=== PATIENT | male | born 1950 | race Caucasian/White ===

== ENCOUNTER 2016-08-17 18:08 | Inpatient (IN) | payer BC, OTHER ==
[2016-08-17] VITALS (7 sets, daily range): BP systolic 121–193; BP diastolic 74–120; PULSE 59–142; RESP 14–20; TEMP 97.9; O2SAT 94–98
[~2016-08-17 18:08] MED LIST: ALPH400C2; APIX5TAB PO; CARDIO PLUS; CART120C PO; ISOS60TA PO; NITR0.4O SL; POTA99TA PO; VITA100064 PO; [UNRECOGNIZED DRUG - CODE]; bone-up
[2016-08-17] MEDS ORDERED: SODIUM CHLORIDE 0.9% FLUSH 10 ML FLUSH IVF PRN ×2 (18:30→18:45)
[2016-08-17] MEDS ORDERED: DILTIAZEM INJ 125 MG in SODIUM CHLORIDE 0.9% INJ 100 ML IV SCH (18:45)
[2016-08-17] MEDS ORDERED: DILTIAZEM HCL 25 MG/5 ML VIAL IV PUSH ONE (18:45)
--- NOTE | 2016-08-17 19:05 | PD ---
HPI Chief Complaint: Chest Pain Time Seen by Provider: 18:35 Travel History International Travel<30 days: No Contact w/Intl Traveler<30days: No Traveled to known affect area: No History of Present Illness HPI 66-year-old male patient with history of atrial fibrillation currently on Cardizem by mouth, CAD with LAD stent, presents to the ER today because of sudden onset of chest discomfort which she currently rates at a 1-2 out of 10, palpitations starting after he started eating mushrooms today. He states that his also ate the mushroom and did not have problems. He denies any shortness of breath, nausea, or any other symptoms. The chest pain did not radiate anywhere. He does not know any alleviating or S being symptoms. He states that the chest discomfort as coming and going on its own intermittently. Modifying Factors: None Associated Signs & Symptoms: Intermittent chest pains and palpitations Risk Factors: A. fib and CAD history PFSH Past Medical History Hx Anticoagulant Therapy: Yes Asthma: No Blood Disorders: No Anxiety: No Depression: No Heart Rhythm Problems: Yes (SKIPS BEAT) Cancer: No Cardiac Catheterization: Yes (STENT PLACED) Cardiovascular Problems: Yes (STENT) High Cholesterol: Yes Chemotherapy: No Chest Pain: Yes Congestive Heart Failure: No COPD: No Diabetes: No Diminished Hearing: No Endocrine: No Genitourinary: No Immune Disorder: No Implanted Vascular Access Dvce: Yes Kidney Stones: Yes Musculoskeletal: No Neurologic: No Psychiatric: No Reproductive: No Respiratory: Yes Radiation Therapy: No Sleep Apnea: Yes Thyroid Disease: No Past Surgical History Body Medical Devices: CARDIAC STENT Cardiac Surgery: Yes ( LEFT RING FINGER, RIGHT KNEE) Oral Surgery: Yes (WISDOM TEETH EXTRACTED) Other Surgery: Yes Social History Alcohol Use: Yes (OCC WINE) Tobacco Use: No Substance Use: No Allergies-Medications (Allergen,Severity, Reaction): Coded Allergies: Tetracyclines (Verified Allergy, Intermediate, Diarrhea, 07/29/16) Reported Meds & Prescriptions Reported Meds & Active Scripts Active Reported Isosorbide Mononitrate ER (Isosorbide Mononitrate) 60 Mg Tab 90 Mg PO DAILY Eliquis (Apixaban) 5 Mg Tab 5 Mg PO BID Alph-E (Vitamin E) Unknown Strength Cap Unknown Dose Cartia Xt (Diltiazem ER 24 HR) 120 Mg Caper 120 Mg PO DAILY Rectiv (Nitroglycerin (Intra-Anal)) 0.4 % Oin 0.4 Mg SL PRN Potassium 99 Mg Tab 99 Mg PO BID Ubiquinol (Ubiquinol (Bulk)) Unknown Strength Pow Unknown Dose Vitamin D (Cholecalciferol) 1,000 Unit Tab 400 Units PO DAILY [cardio plus] [bone-up] Review of Systems Except as stated in HPI: all other systems reviewed are Neg Physical Exam Narrative GENERAL: Elderly white male patient currently none acute distress. Awake and oriented 3. SKIN: Focused skin assessment warm/dry. HEAD: Atraumatic. Normocephalic. EYES: Pupils equal and round. No scleral icterus. No injection or drainage. ENT: No nasal bleeding or discharge. Mucous membranes pink and moist. NECK: Trachea midline. No JVD. CARDIOVASCULAR: Irregularly irregular. No murmur appreciated. Pulses are present and equal bilaterally. RESPIRATORY: No accessory muscle use. Clear to auscultation. Breath sounds equal bilaterally. GASTROINTESTINAL: Abdomen soft, non-tender, nondistended. Hepatic and splenic margins not palpable. MUSCULOSKELETAL: No obvious deformities. No clubbing. No cyanosis. No edema. NEUROLOGICAL: Awake and alert. No obvious cranial nerve deficits. Motor grossly within normal limits. Normal speech. PSYCHIATRIC: Appropriate mood and affect; insight and judgment normal. Data Data Last Documented VS Vital Signs Date Time Temp Pulse Resp B/P Pulse Ox O2 Delivery O2 Flow Rate FiO2 08/17/16 18:47 79 14 161/98 94 Room Air 08/17/16 18:29 97.9 Orders Electrocardiogram (08/17/16 18:20) B-Type Natriuretic Peptide (08/17/16 18:20) Ckmb (Isoenzyme) Profile (08/17/16 18:20) Complete Blood Count With Diff (08/17/16 18:20) Comprehensive Metabolic Panel (08/17/16 18:20) Magnesium (Mg) (08/17/16 18:20) Prothrombin Time / Inr (Pt) (08/17/16 18:20) Act Partial Throm Time (Ptt) (08/17/16 18:20) Troponin I (08/17/16 18:20) Chest, Single Ap (08/17/16 18:20) Ecg Monitoring (08/17/16 18:20) Bilateral Bp Monitoring (08/17/16 18:20) Iv Access Insert/Monitor (08/17/16 18:20) Oximetry (08/17/16 18:20) Oxygen Administration (08/17/16 18:20) Sodium Chloride 0.9% Flush (Ns Flush) (08/17/16 18:30) Diltiazem Inj (Cardizem Inj) (08/17/16 18:45) Diltiazem Inj (Cardizem Inj) (08/17/16 18:45) Sodium Chloride 0.9% Flush (Ns Flush) (08/17/16 18:45) MDM Medical Decision Making Medical Screen Exam Complete: Yes Emergency Medical Condition: Yes Medical Record Reviewed: Yes Interpretation(s) Initial EKG shows A. fib at a rate of 86 bpm with frequent PVCs. No signs of acute ST-T changes. Symptomatic second EKG shows A. fib with RVR at a rate of 140 bpm. No signs of acute ST-T changes. Differential Diagnosis Dysrhythmias versus ACS versus anxiety attack versus metabolic issues versus dehydration Narrative Course Patient states that he had taken his own Cardizem by mouth at around 5 PM after symptoms started. However, the chest discomfort is still going on intermittently and when he had symptoms, EKG showed that that he was in A. fib with RVR at a rate of 140 bpm. At this point, Cardizem IV bolus and drip was initiated in the ER. Lab work was sent. Physician Communication Physician Communication Case is signed out to Dr. Patterson at 7 PM pending workup. Disposition based on workup and response to medication. Diagnosis Primary Impression: Atrial fibrillation with RVR Condition: Stable Galen Buenrostro MD Aug 17, 2016 19:05
[2016-08-17 19:16] LABS: APTT (PATIENT) 26.7 SEC (24.3-30.1); INTERNATIONAL NORMALIZED RATIO 0.9 RATIO; PROTHROMBIN TIME - PATIENT 10.3 SEC (9.8-11.6)
[2016-08-17 19:21] LABS: AUTOMATED NEUTROPHIL # 3.3 TH/MM3 (1.8-7.7); BASOPHIL % 0.5 % (0.0-2.0); EOSINOPHIL # 0.1 TH/MM3 (0-0.4); EOSINOPHIL % 1.4 % (0.0-4.0); HEMATOCRIT 46.8 % (39.0-51.0); HEMO FLAGS DIFF FINAL; LYMPH % 32.6 % (9.0-44.0); MEAN CELL VOLUME 92.3 FL (80.0-100.0); MEAN CORPUSCULAR HEMOGLOBIN 31.5 PG (27.0-34.0); MEAN CORPUSCULAR HGB CONC 34.2 % (32.0-36.0); MONO % 10.2 % (0.0-8.0); NEUT % 55.3 % (16.0-70.0); PLATELET COUNT 129 TH/MM3 (150-450); RED BLOOD COUNT 5.07 MIL/MM3 (4.50-5.90); RED CELL DISTRIBUTION WIDTH 13.5 % (11.6-17.2)
[2016-08-17 19:32] LABS: ANION GAP 12 MEQ/L (5-15); AST (GOT) 22 U/L (15-37); BLOOD UREA NITROGEN 14 MG/DL (7-18); CHLORIDE 105 MEQ/L (98-107); GLOMERULAR FILTRATION RATE 88 ML/MIN (>89); MAGNESIUM 2.1 MG/DL (1.5-2.5); POTASSIUM 3.5 MEQ/L (3.5-5.1); SODIUM (NA) 140 MEQ/L (136-145)
[2016-08-17 19:37] LABS: ALKALINE PHOSPHATASE 73 U/L (45-117); ALT (GPT) 39 U/L (12-78); CREATINE KINASE 192 U/L (39-308); TOTAL BILIRUBIN ADULT 0.6 MG/DL (0.2-1.0)
[2016-08-17 19:49] LABS: CKMB 2.9 NG/ML (0.5-3.6)
--- NOTE | 2016-08-17 19:49 | RADRPT ---
EXAM DATE/TIME: 08/17/2016 18:26 [facility] COMPARISON: CHEST SINGLE AP, January 20, 2014, 11:07. INDICATIONS : Elevated heart rate and chest discomfort. MEDICAL HISTORY : None. SURGICAL HISTORY : Cardiac stent. ENCOUNTER: Initial ACUITY: 1 day PAIN SCORE: 2/10 LOCATION: chest FINDINGS: A single view of the chest demonstrates the lungs to be symmetrically aerated without evidence of mas s, infiltrate or effusion. The cardiomediastinal contours are unremarkable. Osseous structures are intact. CONCLUSION: The lungs are clear. Joel Garcia MD on August 17, 2016 at 19:47 Board Certified Radiologist. This report was verified electronically.
[2016-08-17] MEDS ORDERED: SODIUM CHLORIDE 0.9% FLUSH 10 ML FLUSH IV FLUSH PRN (20:15)
--- NOTE | 2016-08-17 20:26 | PD ---
Data Data Last Documented VS Vital Signs Date Time Temp Pulse Resp B/P Pulse Ox O2 Delivery O2 Flow Rate FiO2 08/17/16 19:29 62 18 121/74 98 Room Air 08/17/16 18:29 97.9 Orders Electrocardiogram (08/17/16 18:20) B-Type Natriuretic Peptide (08/17/16 18:20) Ckmb (Isoenzyme) Profile (08/17/16 18:20) Complete Blood Count With Diff (08/17/16 18:20) Comprehensive Metabolic Panel (08/17/16 18:20) Magnesium (Mg) (08/17/16 18:20) Prothrombin Time / Inr (Pt) (08/17/16 18:20) Act Partial Throm Time (Ptt) (08/17/16 18:20) Troponin I (08/17/16 18:20) Chest, Single Ap (08/17/16 18:20) Ecg Monitoring (08/17/16 18:20) Bilateral Bp Monitoring (08/17/16 18:20) Iv Access Insert/Monitor (08/17/16 18:20) Oximetry (08/17/16 18:20) Oxygen Administration (08/17/16 18:20) Sodium Chloride 0.9% Flush (Ns Flush) (08/17/16 18:30) Diltiazem Inj (Cardizem Inj) (08/17/16 18:45) Diltiazem Inj (Cardizem Inj) (08/17/16 18:45) Sodium Chloride 0.9% Flush (Ns Flush) (08/17/16 18:45) CKMB (08/17/16 18:40) CKMB% (08/17/16 18:40) Admit To Inpatient (08/17/16 ) Code Status (08/17/16 20:14) Vital Signs (Adult) Q4H (08/17/16 20:14) Activity Bed Rest With Brp (08/17/16 20:14) Intake + Output ASMITA.QSHIFT (08/17/16 20:14) Diet Heart Healthy (08/18/16 Breakfast) Sodium Chloride 0.9% Flush (Ns Flush) (08/17/16 20:15) Sodium Chloride 0.9% Flush (Ns Flush) (08/17/16 21:00) Cbc No Diff, Includes Plts (08/18/16 06:00) Magnesium (Mg) (08/17/16 20:14) Free Thyroxine (T4) (08/17/16 20:14) Thyroid Stimulating Hormone (08/17/16 20:14) Prothrombin Time / Inr (Pt) (08/18/16 06:00) Basic Metabolic Panel (Bmp) (08/18/16 06:00) Echo 2d Comp W/Dopp(Routine) (08/17/16 ) Resp Oxygen Silverio C Titrat 1-4 L (08/17/16 ) Director Of Head Start / Telemetry ASMITA.Q8H (08/17/16 20:14) Inpatient Certification (08/17/16 ) Apixaban (Eliquis) (08/17/16 21:00) Cholecalciferol (Vitamin D3) (08/18/16 09:00) Isosorbide Mononitrate (Imdur) (08/18/16 09:00) (Nf) Potassium (08/17/16 21:00) Diltiazem (Cardizem) (08/17/16 20:30) ^ Other Nursing Orders (08/17/16 20:20) Nitroglycerin Sl (Nitrostat Sl) (08/17/16 20:30) Admit Order (Ed Use Only) (08/17/16 20:23) Labs Laboratory Tests Test 08/17/16 18:40 White Blood Count 6.0 TH/MM3 Red Blood Count 5.07 MIL/MM3 Hemoglobin 16.0 GM/DL Hematocrit 46.8 % Mean Corpuscular Volume 92.3 FL Mean Corpuscular Hemoglobin 31.5 PG Mean Corpuscular Hemoglobin 34.2 % Concent Red Cell Distribution Width 13.5 % Platelet Count 129 TH/MM3 Mean Platelet Volume 9.9 FL Neutrophils (%) (Auto) 55.3 % Lymphocytes (%) (Auto) 32.6 % Monocytes (%) (Auto) 10.2 % Eosinophils (%) (Auto) 1.4 % Basophils (%) (Auto) 0.5 % Neutrophils # (Auto) 3.3 TH/MM3 Lymphocytes # (Auto) 2.0 TH/MM3 Monocytes # (Auto) 0.6 TH/MM3 Eosinophils # (Auto) 0.1 TH/MM3 Basophils # (Auto) 0.0 TH/MM3 CBC Comment DIFF FINAL Differential Comment Prothrombin Time 10.3 SEC Prothromb Time International 0.9 RATIO Ratio Activated Partial 26.7 SEC Thromboplast Time Sodium Level 140 MEQ/L Potassium Level 3.5 MEQ/L Chloride Level 105 MEQ/L Carbon Dioxide Level 23.0 MEQ/L Anion Gap 12 MEQ/L Blood Urea Nitrogen 14 MG/DL Creatinine 0.87 MG/DL Estimat Glomerular Filtration 88 ML/MIN Rate Random Glucose 112 MG/DL Calcium Level 8.8 MG/DL Magnesium Level 2.1 MG/DL Total Bilirubin 0.6 MG/DL Aspartate Amino Transf 22 U/L (AST/SGOT) Alanine Aminotransferase 39 U/L (ALT/SGPT) Alkaline Phosphatase 73 U/L Total Creatine Kinase 192 U/L Creatine Kinase MB 2.9 NG/ML Troponin I LESS THAN 0.02 NG/ML B-Type Natriuretic Peptide 81 PG/ML Total Protein 7.6 GM/DL Albumin 4.5 GM/DL MDM Supervised Visit with MIKE: No Narrative Course Patient signed out to me by previous provider. Please see associated no for further details. In short patient is a 66-year-old male with history of A. fib on Eliquis, CAD with previous PCI to the LAD here with complaint of chest pain and palpitations while eating. Heart rate was in the 140s A. fib with RVR. He took an extra dose of his oral Cardizem at home. Here patient remained tachycardic and was given diltiazem, now on drip with improvement of his heart rate. Patient signout to me pending laboratory workup for ultimate admission to medicine. Laboratory workup unremarkable. Patient informed of plan and is agreeable to for admission. Critical Care Narrative Aggregate critical care time was 35 minutes. Time to perform other separately billable procedures was not included in the critical care time. My time did not include minutes spent treating any other patients simultaneously or on activities that did not directly contribute to the patient's treatment. The services I provided to this patient were to treat and/or prevent clinically significant deterioration that could result in: Cardio pulmonary decompensation , , disability I provided critical care services requiring my management, as noted below: Chart data review, documentation time, medication orders and management, vital sign assessments/reviewing monitor data, ordering and reviewing lab tests, ordering and interpreting/reviewing x-rays and diagnostic studies, care of the patient and discussion of the patient with the admitting physicians. Diagnosis Primary Impression: Atrial fibrillation with RVR Condition: Stable Alycia Adams MD Aug 17, 2016 20:26
[2016-08-17] MEDS ORDERED: NITROGLYCERIN 0.4 MG SL 25 TABS/BTL SL PRN (20:30)
[2016-08-17] MEDS: SODIUM CHLORIDE 0.9% FLUSH 10 ML FLUSH IV FLUSH SCH (20:59)
[2016-08-17] MEDS: DILTIAZEM HCL 60 MG TAB PO SCH ×2 (20:59→23:31)
[2016-08-17] MEDS ORDERED: NON-FORMULARY DRUG (Potassium 99 MG) PO SCH (21:00)
[2016-08-17 21:23] LABS: FREE T4 1.17 NG/DL (0.76-1.46)
[2016-08-17] MEDS: APIXABAN 5 MG TABLET PO SCH (21:36)
--- NOTE | 2016-08-17 23:49 | EKG ---
Date Performed: 08/17/2016 Time Performed: 18:19:10 PTAGE: 66 years EKG: Sinus rhythm WITH OCCASIONAL VENTRICULAR PREMATURE COMPLEXES WITH OCCASIONAL SUPRAVENTRICULAR PREMATURE COMPLEXES MODERATE ST DEPRESSION ABNORMAL ECG INTERPRETATION BASED ON A DEFAULT AGE OF 42 YEARS PREVIOUS TRACING : 08/17/2016 18.18 DOCTOR: Marek Love Interpretating Date/Time 08/17/2016 23:48:46
--- NOTE | 2016-08-17 23:49 | EKG ---
Date Performed: 08/17/2016 Time Performed: 18:22:49 PTAGE: 66 years EKG: ATRIAL FLUTTER/TACHYCARDIA WITH RAPID VENTRICULAR RESPONSE ST DEVIATION AND MODERATE T-WAVE ABNORMALITY, CONSIDER INFERIOR ISCHEMIA ABNORMAL ECG INTERPRETATION BASED ON A DEFAULT AGE OF 42 FANNY METCALF PREVIOUS TRACING : 08/17/2016 18.19 DOCTOR: Marek Love Interpretating Date/Time 08/17/2016 23:48:00
--- NOTE | 2016-08-17 23:49 | EKG ---
Date Performed: 08/17/2016 Time Performed: 18:23:23 PTAGE: 66 years EKG: Sinus rhythm WITH OCCASIONAL VENTRICULAR PREMATURE COMPLEXES WITH OCCASIONAL SUPRAVENTRICULAR PREMATURE COMPLEXES BORDERLINE ECG INTERPRETATION BASED ON A DEFAULT AGE OF 42 YEARS NO PREVIOUS TRACING DOCTOR: Marek Love Interpretating Date/Time 08/17/2016 23:47:36
[2016-08-18] VITALS (18 sets, daily range): BP systolic 106–129; BP diastolic 65–96; PULSE 44–65; RESP 12–18; TEMP 97.6–98.1; O2SAT 94–98
[2016-08-18] MEDS: DILTIAZEM HCL 60 MG TAB PO SCH ×2 (05:43→11:07)
[2016-08-18 06:59] LABS: HEMATOCRIT 43.1 % (39.0-51.0); MEAN CELL VOLUME 92.7 FL (80.0-100.0); MEAN CORPUSCULAR HEMOGLOBIN 31.4 PG (27.0-34.0); MEAN CORPUSCULAR HGB CONC 33.9 % (32.0-36.0); PLATELET COUNT 114 TH/MM3 (150-450); RED BLOOD COUNT 4.64 MIL/MM3 (4.50-5.90); RED CELL DISTRIBUTION WIDTH 13.5 % (11.6-17.2); REVIEW FLAG FINAL; WHITE BLOOD COUNT 5.4 TH/MM3 (4.0-11.0)
[2016-08-18 07:08] LABS: BICARBONATE 28.2 MEQ/L (21.0-32.0); POTASSIUM 3.6 MEQ/L (3.5-5.1)
[2016-08-18 07:15] LABS: PROTHROMBIN TIME - PATIENT 11.2 SEC (9.8-11.6)
[2016-08-18] MEDS: APIXABAN 5 MG TABLET PO SCH (07:57)
[2016-08-18] MEDS: SODIUM CHLORIDE 0.9% FLUSH 10 ML FLUSH IV FLUSH SCH (07:58)
[2016-08-18] MEDS ORDERED: ISOSORBIDE MONONITRATE 60 MG TAB PO SCH (09:00)
[2016-08-18] MEDS ORDERED: CHOLECALCIFEROL (VIT D3) 400 UNIT TAB PO SCH (09:00)
--- NOTE | 2016-08-18 12:46 | HHI.HP ---
HPI Service [facility] Hospitalists Primary Care Physician Catracho Choi MD Admission Diagnosis afib w RVR Chief Complaint: palpitations Travel History International Travel<30 Days: No Contact w/Intl Traveler <30 Da: No Traveled to Known Affected Are: No History of Present Illness Patient is a pleasant 66-year-old male with history of atrial fibrillation, coronary artery disease with LAD stent, and elevated PSA. Patient presented to the [facility] yesterday evening with complaint of palpitations and chest discomfort which she rated a 2 out of 10. Palpitations started after eating a meal. Patient denied shortness of breath. No nausea or vomiting and no diaphoresis. No radiation of chest discomfort. Patient follows with cardiology, Dr. Nicholas Mina. Patient was last seen at Dr. Mina's clinic on 07/23/16. At that time patient complained of increasing frequency of chest pain occurring at rest and alleviated by sublingual nitroglycerin. At that visit patient's isosorbide was increased to 60 mg in AM and 30mg in PM. Pt reports improvement in his chest pain since that dose increase of his isosorbide. Review of Systems Constitutional: DENIES: Diaphoretic episodes, Fatigue, Fever, Weight gain, Weight loss, Chills, Dizziness, Change in appetite, Night Sweats Endocrine: DENIES: Heat/cold intolerance, Polydipsia, Polyuria, Polyphagia Eyes: DENIES: Blurred vision, Diplopia, Eye inflammation, Eye pain, Vision loss , Photosensitivity, Double Vision Ears, nose, mouth, throat: DENIES: Tinnitus, Hearing loss, Vertigo, Nasal discharge, Oral lesions, Throat pain, Hoarseness, Ear Pain, Running Nose, Epistaxis, Sinus Pain, Toothache, Odynophagia Respiratory: DENIES: Apneas, Cough, Snoring, Wheezing, Hemoptysis, Sputum production, Shortness of breath Cardiovascular: COMPLAINS OF: Chest pain, Palpitations, DENIES: Syncope, Dyspnea on Exertion, PND, Lower Extremity Edema, Orthopnea, Claudication Gastrointestinal: DENIES: Abdominal pain, Black stools, Bloody stools, BRB per rectum, Constipation, Diarrhea, GERD, Nausea, Reflux, Vomiting, Difficulty Swallowing, Anorexia Genitourinary: DENIES: Urinary frequency, Urinary incontinence, Urgency, Hematuria, Dysuria, Nocturia Musculoskeletal: DENIES: Joint pain, Muscle aches, Stiffness, Joint Swelling, Back pain, Neck pain Integumentary: DENIES: Abnormal pigmentation, Nail changes, Pruritus, Rash Hematologic/lymphatic: DENIES: Bruising, Lymphadenopathy Immunologic/allergic: DENIES: Eczema, Urticaria Neurologic: DENIES: Abnormal gait, Headache, Localized weakness, Paresthesias, Seizures, Speech Problems, Tremor, Poor Balance Psychiatric: DENIES: Anxiety, Confusion, Mood changes, Depression, Hallucinations, Agitation, Suicidal Ideation, Homicidal Ideation, Delusions, History of Bipolar, History of Schizophrenia Past Family Social History Past Medical History 1) coronary artery disease - Pt follows with Dr. Mina - h/o LAD stent 2) paroxysmal atrial fibrillation 3) hyperlipidemia 4) elevated PSA, followed by Dr. Maldonado 5) obesity 6) obstructive sleep apnea 7) thrombocytopenia Past Surgical History 1) cardiac catheterization 2) left ring finger, unspecified 3) right knee Reported Medications Reported Meds & Active Scripts Active Reported Isosorbide Mononitrate ER (Isosorbide Mononitrate) 60 Mg Tab 90 Mg PO DAILY Eliquis (Apixaban) 5 Mg Tab 5 Mg PO BID Alph-E (Vitamin E) Unknown Strength Cap Unknown Dose Cartia Xt (Diltiazem ER 24 HR) 120 Mg Caper 120 Mg PO DAILY Rectiv (Nitroglycerin (Intra-Anal)) 0.4 % Oin 0.4 Mg SL PRN Potassium 99 Mg Tab 99 Mg PO BID Ubiquinol (Ubiquinol (Bulk)) Unknown Strength Pow Unknown Dose Vitamin D (Cholecalciferol) 1,000 Unit Tab 400 Units PO DAILY [cardio plus] [bone-up] Allergies: Coded Allergies: Tetracyclines (Verified Allergy, Intermediate, Diarrhea, 07/29/16) Family History Noncontributory Social History - Never a smoker - Occasional glass of wine - No illicit street drugs Physical Exam Vital Signs Vital Signs Date Time Temp Pulse Resp B/P Pulse Ox O2 Delivery O2 Flow Rate FiO2 08/18/16 12:00 60 08/18/16 12:00 97.9 53 16 106/65 98 08/18/16 11:00 52 08/18/16 10:00 60 08/18/16 09:00 64 08/18/16 08:00 65 08/18/16 08:00 97.8 52 18 118/74 94 08/18/16 07:57 96 21 08/18/16 07:00 50 08/18/16 06:00 50 08/18/16 05:00 50 08/18/16 04:00 48 08/18/16 04:00 97.6 56 12 109/72 96 08/18/16 03:00 50 08/18/16 02:00 44 08/18/16 01:00 46 08/18/16 00:00 97.8 55 129/96 95 08/18/16 00:00 52 08/17/16 21:38 59 20 125/87 98 Room Air 08/17/16 21:11 98 08/17/16 19:29 62 18 121/74 98 Room Air 08/17/16 18:47 79 14 161/98 94 Room Air 08/17/16 18:29 97.9 132 18 193/101 95 08/17/16 18:18 106 17 100 Room Air 08/17/16 18:18 95 Room Air 08/17/16 18:18 96 Room Air 08/17/16 18:15 142 14 183/120 97 Physical Exam GENERAL: This is a well-nourished, well-developed patient, in no apparent distress. SKIN: No rashes, ecchymoses or lesions. Cool and dry. HEAD: Atraumatic. Normocephalic. No temporal or scalp tenderness. EYES: Pupils equal round and reactive. Extraocular motions intact. No scleral icterus. No injection or drainage. ENT: Nose without bleeding, purulent drainage or septal hematoma. Throat without erythema, tonsillar hypertrophy or exudate. Uvula midline. Airway patent. NECK: Trachea midline. No JVD or lymphadenopathy. Supple, nontender, no meningeal signs. CARDIOVASCULAR: Regular rate and rhythm without murmurs, gallops, or rubs. RESPIRATORY: Clear to auscultation. Breath sounds equal bilaterally. No wheezes , rales, or rhonchi. GASTROINTESTINAL: Abdomen soft, non-tender, nondistended. No hepato-splenomegaly , or palpable masses. No guarding. MUSCULOSKELETAL: Extremities without clubbing, cyanosis, or edema. No joint tenderness, effusion, or edema noted. No calf tenderness. Negative Homans sign bilaterally. NEUROLOGICAL: Awake and alert. Cranial nerves II through XII intact. Motor and sensory grossly within normal limits. Five out of 5 muscle strength in all muscle groups. Normal speech. Laboratory Laboratory Tests Test 08/17/16 08/18/16 18:40 06:03 White Blood Count 6.0 5.4 Red Blood Count 5.07 4.64 Hemoglobin 16.0 14.6 Hematocrit 46.8 43.1 Mean Corpuscular Volume 92.3 92.7 Mean Corpuscular Hemoglobin 31.5 31.4 Mean Corpuscular Hemoglobin 34.2 33.9 Concent Red Cell Distribution Width 13.5 13.5 Platelet Count 129 114 Mean Platelet Volume 9.9 9.7 Neutrophils (%) (Auto) 55.3 Lymphocytes (%) (Auto) 32.6 Monocytes (%) (Auto) 10.2 Eosinophils (%) (Auto) 1.4 Basophils (%) (Auto) 0.5 Neutrophils # (Auto) 3.3 Lymphocytes # (Auto) 2.0 Monocytes # (Auto) 0.6 Eosinophils # (Auto) 0.1 Basophils # (Auto) 0.0 CBC Comment DIFF FINAL Differential Comment Prothrombin Time 10.3 11.2 Prothromb Time International 0.9 1.0 Ratio Activated Partial 26.7 Thromboplast Time Sodium Level 140 142 Potassium Level 3.5 3.6 Chloride Level 105 106 Carbon Dioxide Level 23.0 28.2 Anion Gap 12 8 Blood Urea Nitrogen 14 10 Creatinine 0.87 0.81 Estimat Glomerular Filtration 88 96 Rate Random Glucose 112 99 Calcium Level 8.8 8.6 Magnesium Level 2.1 Total Bilirubin 0.6 Aspartate Amino Transf 22 (AST/SGOT) Alanine Aminotransferase 39 (ALT/SGPT) Alkaline Phosphatase 73 Total Creatine Kinase 192 Creatine Kinase MB 2.9 Troponin I LESS THAN 0.02 B-Type Natriuretic Peptide 81 Total Protein 7.6 Albumin 4.5 Free Thyroxine 1.17 Thyroid Stimulating Hormone 1.460 3rd Gen Result Diagram: 08/18/16 0603 08/18/16 06 Septic Shock Reassessment Heart: Irregular Lungs: Clear Skin: Warm Peripheral Pulses: Bounding Right Radial Bounding Left Radial Bounding Right Popliteal Bounding Left Popliteal Bounding Right Dorsalis Pedis Bounding Left Dorsalis Pedis Bounding Right Posterior Tibial Bounding Left Posterior Tibial Capillary Refill: Brisk Assessment and Plan Problem List: (1) Atrial fibrillation with RVR Status: Acute Plan: - Pt admitted with Afib RVR - Pt stared on Cardizem drip in the ER, weaned to off - Pt started on Cardizem 60mg q6hrs - will change to long acting cardizem. Pt was previously on Cardizem CD 120mg daily, will increase dose to 240mg - continue eliquis - will ask pt's [facility] Sew[place], Dr. Mina to consult - anticipate d/c to home 08/19/16 - Free T4/TSH --> WNL - last Echocardiogram 12/22/14 - EF 52% - mild aortic valve insufficiency - await repeat Echocardiogram Addendum: - Pt is adamant that he now feels fine and does NOT want to stay until tomorrow - I will convert him to Cardizem CD this evening 240mg and discharge to home if her tolerates this - pt to f/u with Dr. Mina in 2-3 days - Outpt echocardiogram, if echocardiogram has NOT been done by the time of discharge this evening. (2) Chest pain Status: Acute Plan: - likely d/t Afib - Troponin drawn in ER was negative (3) CAD (coronary artery disease) Status: Acute Plan: - s/p LAD stent - eliquis, isosorbide 60mg BID - NTG prn Physician Certification 2 Midnight Certification Type: Admission for Inpatient Services Order for Inpatient Services The services are ordered in accordance with Medicare regulations or non- Medicare payer requirements, as applicable. In the case of services not specified as inpatient-only, they are appropriately provided as inpatient services in accordance with the 2-midnight benchmark. Estimated LOS (days): 3 3 days is the estimated time the patient will need to remain in the hospital, assuming treatment plan goals are met and no additional complications. Post-Hospital Plan: Home Problem Qualifiers (1) Chest pain: Qualified Code: R07.9 - Chest pain, unspecified type (2) CAD (coronary artery disease): Qualified Code: I25.10 - Coronary artery disease involving [place] heart, angina presence unspecified, unspecified vessel or lesion type Raji Ortega DO Aug 18, 2016 12:46
[2016-08-18] MEDS ORDERED: CART240C PO (13:08)
--- NOTE | 2016-08-18 13:12 | HHI.DCPOC ---
Discharge Care Plan Diagnosis: (1) Atrial fibrillation with RVR (2) Chest pain (3) CAD (coronary artery disease) Goals to Promote Your Health * To prevent worsening of your condition and complications * To maintain your health at the optimal level Directions to Meet Your Goals Take your medications as prescribed Follow your dietary instruction Follow activity as directed Keep your appointments as scheduled Take your immunizations and boosters as scheduled If your symptoms worsen call your PCP, if no PCP go to Urgent Care Center or Emergency Room Smoking is Dangerous to Your Health. Avoid second hand smoke Call the 24-hour hour crisis hotline for domestic abuse at Raji Ortega DO Aug 18, 2016 13:11
[2016-08-18] MEDS ORDERED: DILTIAZEM-CD 240 MG CAP ER PO SCH (17:00)
--- NOTE | 2016-08-18 21:05 | EKG ---
Date Performed: 08/17/2016 Time Performed: 21:27:09 PTAGE: 66 years EKG: SINUS BRADYCARDIA BORDERLINE ECG PREVIOUS TRACING : 01/20/2014 23.41 DOCTOR: Marek Love Interpretating Date/Time 08/18/2016 21:03:45
== END 2016-08-18 17:51 | disposition home or self-care (01) | DRG 310 ==
LOC: NEPE 18:08 → NEDA 20:25 → HCIS 23:00
PROVIDERS: ADMIT Hospitalist; ATTEND Hospitalist
DX: I48.0 Paroxysmal atrial fibrillation (principal); E78.5 Hyperlipidemia, unspecified; I25.10 Atherosclerotic heart disease of native coronary artery without angina pectoris; R97.20 Elevated prostate specific antigen [PSA]; E66.9 Obesity, unspecified; G47.33 Obstructive sleep apnea (adult) (pediatric); I35.1 Nonrheumatic aortic (valve) insufficiency; Z79.01 Long term (current) use of anticoagulants; Z88.1 Allergy status to other antibiotic agents; Z95.5 Presence of coronary angioplasty implant and graft
CPT/HCPCS: 71010; 80048; 80053; 82550; 82552; 83735; 83880; 84439; 84443; 84484; 85025; 85027; 85610; 85730; 93005; 96374

== ENCOUNTER 2016-09-10 06:15 | Day surgery (SDC) | payer OTHER ==
[~2016-09-10] VITALS: Ht 180.3 cm; Wt 96.1 kg
[~2016-09-10 06:15] MED LIST changes: -ALPH400C2; -CARDIO PLUS; -CART120C PO; +CART240C PO; -[UNRECOGNIZED DRUG - CODE]; -bone-up
[2016-09-10 07:14] VITALS: BP 117/77; PULSE 56; RESP 18; TEMP 98.1; O2SAT 94
[2016-09-10] MEDS ORDERED: HEPARIN-NS/PF INJ 500 ML ONE (08:09)
[2016-09-10] MEDS ORDERED: MIDAZOLAM HCL 2 MG/2 ML VIAL ONE ×2 (08:14→08:29)
[2016-09-10] MEDS ORDERED: HEPARIN SODIUM - IV 10,000 UNITS/10 ML VIAL ONE (08:22)
[2016-09-10] MEDS ORDERED: ADENOSINE STRESS TEST INJ 90 MG/30 ML VIAL ONE (08:38)
[2016-09-10] MEDS ORDERED: ONDANSETRON HCL 4 MG/2 ML VIAL IVP PRN (09:00)
[2016-09-10] MEDS ORDERED: oxyCODONE/ACETAMINOPHEN 5 MG/325 MG TAB PO PRN ×2 (09:00)
[2016-09-10] MEDS ORDERED: ASPI81TA11 PO (09:03)
[2016-09-10] MEDS ORDERED: ATOR20TA15 PO (09:03)
--- NOTE | 2016-09-10 09:05 | HHI.DS ---
Discharge Summary Admission Date Admitting Diagnosis Pt Condition on Discharge: Good Discharge Disposition: Discharge Home Discharge Instructions DIET: Follow Instructions for: Heart Healthy Diet Activities you can perform: Weight Bearing as Adela Additional Information Restart Jerrica tomorrow morning Nicholas Mina MD Sep 10, 2016 09:05
[2016-09-10] MEDS ORDERED: BACITRACIN OINT 0.9 GM PKT TOP ONE (10:00)
--- NOTE | 2016-09-10 10:06 | MA ---
cc: TAMRA WALDRON DATE 09/10/2016 INDICATION Unstable angina. PROCEDURE PERFORMED 1. Fluoroscopy with interpretation. 2. Left heart catheterization. 3. Coronary angiography. METHOD The risks, benefits and alternatives were discussed with the patient. The patient understood, consented to the procedure. PROCEDURE The patient was brought to the catheterization lab, was placed on the catheterization table. The right wrist was prepped and draped in sterile fashion. The right wrist was anesthetized with 2% lidocaine. The right radial artery was cannulated. A 6-Persian, 7-cm sheath was placed without difficulty. LEFT HEART CATHETERIZATION A 6-Persian, JR-5 catheter was advanced across the valve without difficulty. Intraoperative hemodynamics measured at 120/10 mmHg. CORONARY ANGIOGRAPHY 1. Left main coronary was angiographically normal. 2. Left anterior descending coronary is tortuous in the proximal segment. There is a stent present in the proximal segment which has some mild luminal irregularities in the proximal stent portion. There is a diagonal branch that bifurcates right at the proximal stent. The diagonal branch has about a 50% stenosis with a smaller caliber size vessel. The remainder of the left anterior descending coronary has only minor luminal irregularities. 3. Left circumflex does give rise to a first obtuse marginal branch, a large caliber size vessel, angiographically normal. 4. The right coronary is a dominant vessel giving rise to a posterior descending branch. The right coronary has some minor luminal irregularities in the mid-segment. CONCLUSIONS 1. Patent left anterior descending coronary stent with moderate branch vessel diagonal branch coronary disease. 2. Normal left-sided filling pressures. PLAN The diagonal branch does not appear to be high-grade stenosis to cause resting symptoms and small and is smaller caliber size for any potential intervention. His left anterior descending coronary stent is patent. We will continue with aggressive medical management. He had a dilated ascending aorta noted on echocardiogram, confirmed by CT of the chest. Official report is still pending for the CTA but looking at it myself the ascending aorta is about 4.8 cm. He will need a follow-up CT in 6 months. His ejection fraction is normal at 60-65%. We will monitor him closely today and anticipate discharge later today. MD JEAN Rey/ZEV /8:53 AM /9:59 AM
== END 2016-09-10 12:05 | disposition home or self-care (01) ==
LOC: HDIC 06:15 → HDOC 06:15
PROVIDERS: ATTEND Internal Medicine
DX: I25.110 Atherosclerotic heart disease of native coronary artery with unstable angina pectoris (principal); I20.8 Other forms of angina pectoris; Z95.5 Presence of coronary angioplasty implant and graft
CPT/HCPCS: 86850; 86900; 86901; 93454; C1769; C1893; J1644; J2250; J3010; J0153

== ENCOUNTER 2016-11-16 17:19 | Emergency (ER) | payer OTHER ==
[~2016-11-16] VITALS: Ht 180.3 cm; Wt 93.0 kg
[~2016-11-16 17:19] MED LIST changes: +ASPI81TA11 PO; +ATOR20TA15 PO; -POTA99TA PO
[2016-11-16 17:21] VITALS: BP 138/100; PULSE 102; RESP 20; TEMP 97.8; O2SAT 96
[2016-11-16 17:34] VITALS: BP 150/104; PULSE 120; RESP 17; O2SAT 97
[2016-11-16] MEDS ORDERED: CARD120T4 PO (17:41)
[2016-11-16] MEDS ORDERED: DILTIAZEM HCL 25 MG/5 ML VIAL IV ONE (17:45)
--- NOTE | 2016-11-16 17:54 | PD ---
HPI Chief Complaint: Cardiac Complaint Time Seen by Provider: 17:31 Travel History International Travel<30 days: No Contact w/Intl Traveler<30days: No Traveled to known affect area: No History of Present Illness HPI This is a 66-year-old male who presents to the emergency department with a history of atrial fibrillation reporting palpitations that started at around 4: 00, constant, moderate severity associated with some tightness in his left chest and some discomfort in his neck. He reports that he took 120 of Cardizem this morning which is his normal dose. He was recently in the hospital and treated for atrial fibrillation with RVR. At that time Dr. Ortega recommended that he increase his Cardizem dose to 240. He took that for a while but he started to develop a low heart rate and lightheadedness of his it compliance manager switched him back to 120. He otherwise has not been ill and he feels like his symptoms are improving. PFSH Past Medical History Hx Anticoagulant Therapy: Yes Asthma: No Atrial Fibrillation: Yes Blood Disorders: No Anxiety: No Depression: No Heart Rhythm Problems: Yes Cancer: No Cardiac Catheterization: Yes (STENT PLACED) Cardiovascular Problems: Yes (STENT, AORTIC ANEURYSM) High Cholesterol: Yes Chemotherapy: No Chest Pain: Yes Congestive Heart Failure: No COPD: No Diabetes: No Diminished Hearing: No Endocrine: No Gastrointestinal Disorders: No Genitourinary: No Hypertension: No Immune Disorder: No Implanted Vascular Access Dvce: Yes Kidney Stones: Yes Musculoskeletal: No Neurologic: No Psychiatric: No Reproductive: No Respiratory: Yes Radiation Therapy: No Sleep Apnea: Yes (CPAP) Thyroid Disease: No Tetanus Vaccination: Unknown Influenza Vaccination: No ?: Not Past Surgical History Body Medical Devices: CARDIAC STENT Cardiac Surgery: Yes ( LEFT RING FINGER, RIGHT KNEE) Oral Surgery: Yes (WISDOM TEETH EXTRACTED) Other Surgery: Yes Social History Alcohol Use: Yes (OCC) Tobacco Use: No Substance Use: No Allergies-Medications (Allergen,Severity, Reaction): Coded Allergies: Tetracyclines (Verified Allergy, Intermediate, Diarrhea, 11/16/16) HMG-CoA Reductase Inhibitors (Verified Allergy, Unknown, 11/16/16) Reported Meds & Prescriptions Reported Meds & Active Scripts Active Reported Cardizem (Diltiazem HCl) 120 Mg Tab 120 Mg PO DAILY Eliquis (Apixaban) 5 Mg Tab 5 Mg PO BID Rectiv (Nitroglycerin (Intra-Anal)) 0.4 % Oin 0.4 Mg SL PRN Review of Systems Except as stated in HPI: all other systems reviewed are Neg Physical Exam Narrative GENERAL:Well appearing, no acute distress SKIN: Focused skin assessment warm and dry. HEAD: Atraumatic. Normocephalic. EYES: Pupils equal and round. No injection or drainage. ENT: Moist mucous membranes NECK: Trachea midline. CARDIOVASCULAR: Tachycardic. Irregularly irregular. No murmur appreciated. RESPIRATORY: Clear to auscultation. Breath sounds equal bilaterally. GASTROINTESTINAL: Abdomen soft, non-tender, nondistended. MUSCULOSKELETAL: No obvious deformities. NEUROLOGICAL: Awake and alert. No obvious cranial nerve deficits. Moving all extremities. PSYCHIATRIC: Appropriate mood and affect; insight and judgment normal. Data Data Last Documented VS Vital Signs Date Time Temp Pulse Resp B/P Pulse Ox O2 Delivery O2 Flow Rate FiO2 11/16/16 18:35 80 16 128/83 95 Room Air 11/16/16 17:21 97.8 Orders Electrocardiogram (11/16/16 ) Complete Blood Count With Diff (11/16/16 17:39) Comprehensive Metabolic Panel (11/16/16 17:39) Troponin I (11/16/16 17:39) Thyroid Stimulating Hormone (11/16/16 17:39) Diltiazem Inj (Cardizem Inj) (11/16/16 17:45) Diet Regular Basic (11/16/16 Dinner) Labs Laboratory Tests Test 11/16/16 17:50 White Blood Count 5.9 TH/MM3 Red Blood Count 5.04 MIL/MM3 Hemoglobin 15.9 GM/DL Hematocrit 46.8 % Mean Corpuscular Volume 92.8 FL Mean Corpuscular Hemoglobin 31.6 PG Mean Corpuscular Hemoglobin 34.0 % Concent Red Cell Distribution Width 13.9 % Platelet Count 121 TH/MM3 Mean Platelet Volume 10.1 FL Neutrophils (%) (Auto) 59.6 % Lymphocytes (%) (Auto) 29.7 % Monocytes (%) (Auto) 8.0 % Eosinophils (%) (Auto) 2.3 % Basophils (%) (Auto) 0.4 % Neutrophils # (Auto) 3.5 TH/MM3 Lymphocytes # (Auto) 1.8 TH/MM3 Monocytes # (Auto) 0.5 TH/MM3 Eosinophils # (Auto) 0.1 TH/MM3 Basophils # (Auto) 0.0 TH/MM3 CBC Comment DIFF FINAL Differential Comment Sodium Level 140 MEQ/L Potassium Level 3.5 MEQ/L Chloride Level 107 MEQ/L Carbon Dioxide Level 24.6 MEQ/L Anion Gap 8 MEQ/L Blood Urea Nitrogen 14 MG/DL Creatinine 0.81 MG/DL Estimat Glomerular Filtration 96 ML/MIN Rate Random Glucose 116 MG/DL Calcium Level 9.0 MG/DL Total Bilirubin 0.6 MG/DL Aspartate Amino Transf 34 U/L (AST/SGOT) Alanine Aminotransferase 57 U/L (ALT/SGPT) Alkaline Phosphatase 84 U/L Troponin I LESS THAN 0.02 NG/ML Total Protein 7.4 GM/DL Albumin 4.4 GM/DL Thyroid Stimulating Hormone 1.550 uIU/ML [address] [place] [address] Medical Decision Making Medical Screen Exam Complete: Yes Emergency Medical Condition: Yes Interpretation(s) Afebrile, mild tachycardia, mild hypertension No leukocytosis Electrolytes are reassuring Troponin is normal TSH is normal Differential Diagnosis EKG: Atrial fibrillation with rapid ventricular response No leukocytosis Electrolytes are reassuring Troponin is normal TSH is normal Narrative Course This is a 66-year-old male who presents to the emergency department with palpitations. His EKG demonstrates atrial fibrillation with rapid ventricular response. Labs are obtained which are all reassuring including a normal troponin and normal TSH. Patient was given 15 mg of diltiazem and his heart rate was improved. I think he would benefit from a slightly higher dose of Cardizem. I will start the patient on 180 mg of Cardizem daily and he should follow-up with Dr. Mina in clinic. I don't think he requires admission as his heart rate was only in the 110s to 120s on arrival in the emergency department. Diagnosis Primary Impression: Atrial fibrillation with RVR Patient Instructions: General Instructions Additional Instructions: If you develop severe chest pain, shortness of breath, sweating, lightheadedness , dizziness or difficulty breathing return to the emergency department immediately. Followup with your primary care physician in 2-3 days if your symptoms are not resolved. Increase your cardizem dose to 180mg daily. Med/Other Pt SpecificInfo: Prescription(s) given Scripts Diltiazem CD 24 HR (Cardizem CD 24 HR)180 Mg [id number] Mg PO DAILY #30 CAP Ref 0 Prov:Lata Garcia MD 11/16/16 Disposition: 01 DISCHARGE HOME Condition: Stable Lata Garcia MD Nov 16, 2016 17:54
[2016-11-16 18:02] VITALS: BP 144/89; PULSE 82; RESP 17; O2SAT 97
[2016-11-16 18:26] LABS: AUTOMATED NEUTROPHIL # 3.5 TH/MM3 (1.8-7.7); BASOPHIL % 0.4 % (0.0-2.0); EOSINOPHIL # 0.1 TH/MM3 (0-0.4); EOSINOPHIL % 2.3 % (0.0-4.0); HEMATOCRIT 46.8 % (39.0-51.0); HEMO FLAGS DIFF FINAL; LYMPH % 29.7 % (9.0-44.0); LYMPHOCYTE # 1.8 TH/MM3 (1.0-4.8); MEAN CELL VOLUME 92.8 FL (80.0-100.0); MEAN CORPUSCULAR HEMOGLOBIN 31.6 PG (27.0-34.0); NEUT % 59.6 % (16.0-70.0); PLATELET COUNT 121 TH/MM3 (150-450); RED BLOOD COUNT 5.04 MIL/MM3 (4.50-5.90); RED CELL DISTRIBUTION WIDTH 13.9 % (11.6-17.2); WHITE BLOOD COUNT 5.9 TH/MM3 (4.0-11.0)
[2016-11-16 18:35] VITALS: BP 128/83; PULSE 80; RESP 16; O2SAT 95
[2016-11-16 18:40] LABS: ALT (GPT) 57 U/L (12-78)
[2016-11-16 18:50] LABS: ALKALINE PHOSPHATASE 84 U/L (45-117); TOTAL BILIRUBIN ADULT 0.6 MG/DL (0.2-1.0)
[2016-11-16 18:51] LABS: ANION GAP 8 MEQ/L (5-15); AST (GOT) 34 U/L (15-37); BICARBONATE 24.6 MEQ/L (21.0-32.0); BLOOD UREA NITROGEN 14 MG/DL (7-18); CHLORIDE 107 MEQ/L (98-107); GLOMERULAR FILTRATION RATE 96 ML/MIN (>89); POTASSIUM 3.5 MEQ/L (3.5-5.1); SODIUM (NA) 140 MEQ/L (136-145)
[2016-11-16] MEDS ORDERED: CARD180C5 PO (19:01)
[2016-11-16 19:50] VITALS: BP 128/83; PULSE 85; RESP 16; O2SAT 96
--- NOTE | 2016-11-17 13:46 | EKG ---
Date Performed: 11/16/2016 Time Performed: 17:30:49 PTAGE: 66 years EKG: ATRIAL FIBRILLATION WITH RAPID VENTRICULAR RESPONSE NONSPECIFIC ST & T-WAVE ABNORMALITY Com pared to previous tracing, the patient has developed atrial fibrillation. The nonspecific ST-T wave c hanges are new. Clinical correlation is advised ABNORMAL RHYTHM ECG PREVIOUS TRACING : 08/17/2016 21.27 DOCTOR: Sona Lopez Interpretating Date/Time 11/17/2016 13:45:05
== END 2016-11-16 19:51 | disposition home or self-care (01) ==
LOC: NEPE 17:19
DX: I48.91 Unspecified atrial fibrillation (principal); G47.30 Sleep apnea, unspecified; Z95.5 Presence of coronary angioplasty implant and graft
CPT/HCPCS: 80053; 84443; 84484; 85025; 93005; 96374

== ENCOUNTER 2017-04-27 20:15 | Emergency (ER) | payer MEDICARE, OTHER ==
[~2017-04-27] VITALS: Ht 180.3 cm; Wt 95.0 kg
[~2017-04-27 20:15] MED LIST changes: -ASPI81TA11 PO; -ATOR20TA15 PO; +CARD120T4 PO; +CARD180C5 PO; -CART240C PO; -ISOS60TA PO; -VITA100064 PO
[2017-04-27 20:16] VITALS: BP 194/86; PULSE 76; RESP 16; TEMP 99; O2SAT 95
[2017-04-27 21:43] VITALS: O2SAT 100
[2017-04-27] MEDS ORDERED: SODIUM CHLORIDE 0.9% FLUSH 10 ML FLUSH IV FLUSH PRN (21:45)
[2017-04-27] MEDS ORDERED: ISOS20TA PO (21:45)
[2017-04-27 22:01] LABS: BASOPHIL % 0.3 % (0.0-2.0); EOSINOPHIL # 0.1 TH/MM3 (0-0.4); EOSINOPHIL % 0.8 % (0.0-4.0); HEMATOCRIT 46.9 % (39.0-51.0); LYMPH % 13.9 % (9.0-44.0); LYMPHOCYTE # 1.5 TH/MM3 (1.0-4.8); MEAN CELL VOLUME 93.4 FL (80.0-100.0); MEAN CORPUSCULAR HEMOGLOBIN 33.7 PG (27.0-34.0); MONO % 10.6 % (0.0-8.0); NEUT % 74.4 % (16.0-70.0); RED BLOOD COUNT 5.02 MIL/MM3 (4.50-5.90); RED CELL DISTRIBUTION WIDTH 13.9 % (11.6-17.2); WHITE BLOOD COUNT 10.8 TH/MM3 (4.0-11.0)
[2017-04-27 22:07] LABS: HEMO FLAGS DIFF FINAL; PLATELET COUNT 131 TH/MM3 (150-450)
[2017-04-27 22:11] LABS: ALT (GPT) 36 U/L (12-78); ANION GAP 6 MEQ/L (5-15); AST (GOT) 14 U/L (15-37); BLOOD UREA NITROGEN 12 MG/DL (7-18); CHLORIDE 101 MEQ/L (98-107); GLOMERULAR FILTRATION RATE 82 ML/MIN (>89); POTASSIUM 4.1 MEQ/L (3.5-5.1); SODIUM (NA) 137 MEQ/L (136-145)
[2017-04-27 22:13] LABS: ALKALINE PHOSPHATASE 86 U/L (45-117)
[2017-04-27] MEDS ORDERED: ONDANSETRON HCL 4 MG/2 ML VIAL IVP ONE (22:15)
[2017-04-27] MEDS ORDERED: MORPHINE SULFATE 4 MG/ML INJ IV PUSH ONE (22:15)
[2017-04-27 22:20] LABS: BLOOD, URINE TRACE (NEG); GLUCOSE,URINE NEG (NEG); KETONE, URINE NEG (NEG); NITRITE,URINE NEG (NEG); PH, URINE 6.5 (5.0-8.5); SQUAMOUS EPITHELIAL CELL URINE <1 /hpf (0-5); URINE COLOR YELLOW (YELLW/STRAW)
[2017-04-27 22:32] LABS: COMMENT (UR) CULT NOT INDICATED; CULTURE IF INDICATED CULT NOT INDICATED
--- NOTE | 2017-04-27 23:00 | RADRPT ---
EXAM DATE/TIME: 04/27/2017 22:37 [facility] COMPARISON: No previous studies available for comparison. INDICATIONS : Abdomen pain. ORAL CONTRAST: No oral contrast ingested. RADIATION DOSE: 13.54 CTDIvol (mGy) MEDICAL HISTORY : Cardiovascular disease. Hypertension. SURGICAL HISTORY : Coronary artery stent. ENCOUNTER: Initial ACUITY: 1 day PAIN SCALE: 8/10 LOCATION: Bilateral abdomen TECHNIQUE: Volumetric scanning of the abdomen and pelvis was performed. Using automated exposure control and ad justment of the mA and/or kV according to patient size, radiation dose was kept as low as reasonably achievable to obtain optimal diagnostic quality images. DICOM format image data is available electro nically for review and comparison. FINDINGS: LOWER LUNGS: There is minimal suspected atelectasis at the lung bases. LIVER: There are multiple hypodensities seen throughout the liver measuring up to 4.5 cm. They most closely resemble cysts but are nonspecific on this noncontrast CT examination. SPLEEN: There is a 3.8 cm low-density mass with coarse peripheral calcifications. This is nonspecific. This l ikely represents a sequela of prior injury or insult. PANCREAS: Within normal limits. KIDNEYS: There are at least 3 small approximately 2 mm nonobstructing left renal stones. No hydronephrosis is seen on either side. ADRENAL GLANDS: Within normal limits. VASCULAR: There is no aortic aneurysm. Calcifications are seen throughout the arterial system. BOWEL/MESENTERY: There is thickening of the sigmoid colon. There is a prominent amount stool seen in the sigmoid colon . There are few scattered colonic diverticula. ABDOMINAL WALL: Within normal limits. RETROPERITONEUM: There is no lymphadenopathy. BLADDER: No wall thickening or mass. REPRODUCTIVE: The prostate is prominent. There are prostatic calcifications. INGUINAL: There is no lymphadenopathy or hernia. MUSCULOSKELETAL: There is degenerative change of the lower lumbar spine. CONCLUSION: 1. Thickening of the sigmoid colon. This could be secondary to colitis. A neoplasm cannot be excluded . The colon could be directly inspected at some point. 2. Multiple hypodensities in the liver. These could be further evaluated with a contrast-enhanced CT or MRI examination at some point. 3. Low density probably cystic area in the mid spleen with coarse peripheral calcifications likely th e sequela of prior insult. 4. Nonobstructing tiny left renal stones. Rigo Black MD on April 27, 2017 at 22:52 Board Certified Radiologist. This report was verified electronically.
--- NOTE | 2017-04-27 23:04 | PD ---
HPI . Abdominal pain Chief Complaint: Abdominal Pain Time Seen by Provider: 21:39 Travel History International Travel<30 days: No Contact w/Intl Traveler<30days: No Traveled to known affect area: No History of Present Illness HPI This patient presents with chief complaint of abdominal pain. He reports the onset of lower abdominal pain 2 days ago. He reports a fever tonight of approximately 100. He does not have any associated symptoms such as urinary tract symptoms or GI symptoms. He does report the pain is exacerbated by eating. It is also exacerbated by sitting and improved by laying flat. He states that he has taken an [id number] laxative thinking that perhaps this is symptoms were due to constipation. He states that he has had a couple of bowel movements and that the bowel movements have not improved his pain. He initially rated the pain 6/10. PFSH Past Medical History Hx Anticoagulant Therapy: Yes Asthma: No Atrial Fibrillation: Yes Blood Disorders: No Anxiety: No Depression: No Heart Rhythm Problems: Yes Cancer: No Cardiac Catheterization: Yes (STENT PLACED) Cardiovascular Problems: Yes (STENT, AORTIC ANEURYSM, endothelial dysfunction) High Cholesterol: Yes Chemotherapy: No Chest Pain: Yes Congestive Heart Failure: No COPD: No Diabetes: No Diminished Hearing: No Endocrine: No Gastrointestinal Disorders: No Genitourinary: No Hypertension: No Immune Disorder: No Implanted Vascular Access Dvce: Yes Kidney Stones: Yes Musculoskeletal: No Neurologic: No Psychiatric: No Reproductive: No Respiratory: Yes Radiation Therapy: No Sleep Apnea: Yes (CPAP) Thyroid Disease: No ?: Not Past Surgical History Body Medical Devices: CARDIAC STENT Cardiac Surgery: Yes ( LEFT RING FINGER, RIGHT KNEE) Oral Surgery: Yes (WISDOM TEETH EXTRACTED) Other Surgery: Yes Social History Alcohol Use: Yes (OCC) Tobacco Use: No Substance Use: No Allergies-Medications (Allergen,Severity, Reaction): Coded Allergies: doxycycline (Unverified Allergy, Intermediate, Diarrhea, 04/27/17) minocycline (Unverified Allergy, Intermediate, Diarrhea, 04/27/17) tigecycline (Unverified Allergy, Intermediate, Diarrhea, 04/27/17) amlodipine (Unverified Allergy, Unknown, 04/27/17) atorvastatin (Unverified Allergy, Unknown, 04/27/17) pravastatin (Unverified Allergy, Unknown, 04/27/17) simvastatin (Unverified Allergy, Unknown, 04/27/17) Reported Meds & Prescriptions Reported Meds & Active Scripts Active Cardizem CD 24 HR (Diltiazem CD 24 HR) 180 Mg Caper 180 Mg PO DAILY Reported Isosorbide Mononitrate 20 Mg Tab 60 Mg PO BID Take 2 doses 7 hours apart. Cardizem (Diltiazem HCl) 120 Mg Tab 120 Mg PO DAILY Eliquis (Apixaban) 5 Mg Tab 5 Mg PO BID Rectiv (Nitroglycerin (Intra-Anal)) 0.4 % Oin 0.4 Mg SL PRN Review of Systems Except as stated in HPI: all other systems reviewed are Neg General / Constitutional: Positive: Fever Respiratory: No: Cough, Shortness of Breath Gastrointestinal: Positive: Abdominal Pain, No: Nausea, Vomiting, Diarrhea Genitourinary: No: Urgency, Frequency, Dysuria, Decreased Urinary Output Physical Exam Narrative GENERAL: Awake and alert and in no acute distress. SKIN: warm/dry. HEAD: Normocephalic. Atraumatic. EYES: Pupils equal and round. No scleral icterus. No injection or drainage. ENT: No nasal bleeding or discharge. Mucous membranes pink and moist. NECK: Trachea midline. Full range of motion without pain.. CARDIOVASCULAR: Regular rate and rhythm. RESPIRATORY: No accessory muscle use. Clear to auscultation. Breath sounds equal bilaterally. GASTROINTESTINAL: Abdomen soft. Nontender. Bowel sounds present. Nondistended. MUSCULOSKELETAL: No obvious deformities. NEUROLOGICAL: Awake and alert. No obvious cranial nerve deficits. Motor grossly within normal limits. Normal speech. PSYCHIATRIC: Appropriate mood and affect; insight and judgment normal. Data Data Last Documented VS Vital Signs Date Time Temp Pulse Resp B/P (MAP) Pulse Ox O2 Delivery O2 Flow Rate FiO2 04/27/17 21:43 100 Room Air 04/27/17 20:16 99.0 76 16 Orders Orders Complete Blood Count With Diff (04/27/17 21:40) Comprehensive Metabolic Panel (04/27/17 21:40) Lipase (04/27/17 21:40) Urinalysis - C+S If Indicated (04/27/17 21:40) Iv Access Insert/Monitor (04/27/17 21:40) Ecg Monitoring (04/27/17 21:40) Oximetry (04/27/17 21:40) Sodium Chloride 0.9% Flush (Ns Flush) (04/27/17 21:45) Ct Abd/Pel W/O Iv Contrast (04/27/17 22:04) Morphine Inj (Morphine Inj) (04/27/17 22:15) Ondansetron Inj (Zofran Inj) (04/27/17 22:15) Sodium Chlor 0.9% 1000 Ml Inj (Ns 1000 M (04/28/17 00:00) Labs Laboratory Tests Test 04/27/17 21:47 04/27/17 21:56 White Blood Count 10.8 TH/MM3 Red Blood Count 5.02 MIL/MM3 Hemoglobin 16.9 GM/DL Hematocrit 46.9 % Mean Corpuscular Volume 93.4 FL Mean Corpuscular Hemoglobin 33.7 PG Mean Corpuscular Hemoglobin Concent 36.0 % Red Cell Distribution Width 13.9 % Platelet Count 131 TH/MM3 Mean Platelet Volume 9.2 FL Neutrophils (%) (Auto) 74.4 % Lymphocytes (%) (Auto) 13.9 % Monocytes (%) (Auto) 10.6 % Eosinophils (%) (Auto) 0.8 % Basophils (%) (Auto) 0.3 % Neutrophils # (Auto) 8.0 TH/MM3 Lymphocytes # (Auto) 1.5 TH/MM3 Monocytes # (Auto) 1.1 TH/MM3 Eosinophils # (Auto) 0.1 TH/MM3 Basophils # (Auto) 0.0 TH/MM3 CBC Comment DIFF FINAL Differential Comment Blood Urea Nitrogen 12 MG/DL Creatinine 0.93 MG/DL Random Glucose 102 MG/DL Total Protein 7.9 GM/DL Albumin 4.3 GM/DL Calcium Level 8.8 MG/DL Alkaline Phosphatase 86 U/L Aspartate Amino Transf (AST/SGOT) 14 U/L Alanine Aminotransferase (ALT/SGPT) 36 U/L Total Bilirubin 2.0 MG/DL Sodium Level 137 MEQ/L Potassium Level 4.1 MEQ/L Chloride Level 101 MEQ/L Carbon Dioxide Level 30.0 MEQ/L Anion Gap 6 MEQ/L Estimat Glomerular Filtration Rate 82 ML/MIN Lipase 91 U/L Urine Color YELLOW Urine Turbidity CLEAR Urine pH 6.5 Urine Specific [place] 1.007 Urine Protein NEG mg/dL Urine Glucose (UA) NEG mg/dL Urine Ketones NEG mg/dL Urine Occult Blood TRACE Urine Nitrite NEG Urine Bilirubin NEG Urine Urobilinogen 2.0 MG/DL Urine Leukocyte Esterase NEG Urine RBC 1 /hpf Urine WBC 2 /hpf Urine Squamous Epithelial Cells <1 /hpf Microscopic Urinalysis Comment CULT NOT INDICATED MDM Medical Decision Making Medical Screen Exam Complete: Yes Emergency Medical Condition: Yes Differential Diagnosis Differential diagnosis of abdominal pain includes but is not limited to gastritis, pancreatitis, hepatitis, gastroenteritis, gallbladder disease, constipation, urinary retention, UTI, peptic ulcer disease, diverticulitis or appendicitis Narrative Course This patient presents with a chief complaint of lower abdominal pain. His abdominal exam is benign. He has some suprapubic tenderness but no guarding or rebound. CBC & BMP Diagram 04/27/17 21:47 Total Protein 7.9, Albumin 4.3, Calcium Level 8.8, Alkaline Phosphatase 86, Aspartate Amino Transf (AST/SGOT) 14 L, Alanine Aminotransferase (ALT/SGPT) 36, Total Bilirubin 2.[address] abd/pelvis: 1. Thickening of the sigmoid colon. This could be secondary to colitis. A neoplasm cannot be excluded. The colon could be directly inspected at some point. 2. Multiple hypodensities in the liver. These could be further evaluated with a contrast-enhanced CT or MRI examination at some point. 3. Low density probably cystic area in the mid spleen with coarse peripheral calcifications likely the sequela of prior insult. 4. Nonobstructing tiny left renal stones. I will treat him for colitis with Bactrim and Flagyl. I will recommend that he follow-up with a script editor. Diagnosis Primary Impression: Abdominal pain Qualified Codes: R10.30 - Lower abdominal pain, unspecified Additional Impression: Colitis Referrals: Maurice Sanchez MD Patient Instructions: Abdominal Pain (ED), Colitis (ED), General Instructions, Narcotic given in the ED Med/Other Pt SpecificInfo: Prescription(s) given Scripts Hydrocodone-Acetaminophen ([place]) 5 Mg-325 Mg Tab 1 TAB PO Q4H Y for PAIN, #12 TAB 0 Refills Prov: Brunilda Huertas MD 04/28/17 Metronidazole (Flagyl) 500 Mg Tab 500 MG PO BID for Infection for 7 Days, #14 TAB 0 Refills Prov: Brunilda Huertas MD 04/28/17 Sulfamethoxazole-Trimethoprim (Bactrim DS) 800-160 Mg Tab 1 TAB PO BID for Infection, #20 TAB 0 Refills Prov: Brunilda Huertas MD 04/28/17 Disposition: 01 DISCHARGE HOME Condition: Stable Brunilda Huertas MD Apr 27, 2017 23:04
[2017-04-28] MEDS ORDERED: SODIUM CHLOR 0.9% 1000 ML INJ 1,000 ML IV ONE
[2017-04-28] MEDS ORDERED: BACT800T5 PO (00:15)
[2017-04-28] MEDS ORDERED: METR-1 PO (00:15)
[2017-04-28] MEDS ORDERED: NORC5TAB PO (00:15)
== END 2017-04-28 00:52 | disposition home or self-care (01) ==
LOC: NEPE 20:15
DX: R10.30 Lower abdominal pain, unspecified (principal); K52.9 Noninfective gastroenteritis and colitis, unspecified; N20.0 Calculus of kidney; I48.91 Unspecified atrial fibrillation; E78.00 Pure hypercholesterolemia, unspecified; Z87.442 Personal history of urinary calculi; Z79.899 Other long term (current) drug therapy; Z88.8 Allergy status to other drugs, medicaments and biological substances
CPT/HCPCS: 74176; 80053; 81001; 83690; 85025; 96374; 96375; 99285; J2270; J2405; J7030

== ENCOUNTER 2017-05-29 16:14 | Emergency (ER) | payer MEDICARE ==
[~2017-05-29] VITALS: Ht 180.3 cm; Wt 90.5 kg
[~2017-05-29 16:14] MED LIST changes: +BACT800T5 PO; +ISOS20TA PO; +METR-1 PO; +NORC5TAB PO
[2017-05-29 16:15] VITALS: BP 151/78; PULSE 57; RESP 16; TEMP 98.9; O2SAT 98
[2017-05-29 17:25] LABS: AUTOMATED NEUTROPHIL # 3.8 TH/MM3 (1.8-7.7); BASOPHIL % 0.2 % (0.0-2.0); EOSINOPHIL # 0.1 TH/MM3 (0-0.4); HEMATOCRIT 40.5 % (39.0-51.0); HEMOGLOBIN 14.1 GM/DL (13.0-17.0); LYMPH % 32.6 % (9.0-44.0); LYMPHOCYTE # 2.2 TH/MM3 (1.0-4.8); MEAN CELL VOLUME 93.1 FL (80.0-100.0); MEAN CORPUSCULAR HEMOGLOBIN 32.5 PG (27.0-34.0); MEAN CORPUSCULAR HGB CONC 34.9 % (32.0-36.0); MEAN PLATELET VOLUME 9.6 FL (7.0-11.0); MONO % 9.2 % (0.0-8.0); MONOCYTE # 0.6 TH/MM3 (0-0.9); PLATELET COUNT 130 TH/MM3 (150-450); RED BLOOD COUNT 4.35 MIL/MM3 (4.50-5.90); RED CELL DISTRIBUTION WIDTH 14.4 % (11.6-17.2); WHITE BLOOD COUNT 6.7 TH/MM3 (4.0-11.0)
--- NOTE | 2017-05-29 17:33 | RADRPT ---
EXAM DATE/TIME: 05/29/2017 17:04 [facility] COMPARISON: No previous studies available for comparison. INDICATIONS : Chest discomfort; irregular heart beat today. MEDICAL HISTORY : Afib. LAD spasms. SURGICAL HISTORY : Coronary stent. Cardiac cath. ENCOUNTER: Initial ACUITY: 1 day PAIN SCORE: 0/10 LOCATION: Bilateral chest FINDINGS: PA and lateral views of the chest demonstrate the lungs to be symmetrically aerated without evidence of mass, infiltrate or effusion. The cardiomediastinal contours are unremarkable. Osseous structure s are intact. CONCLUSION: No acute disease. Jesus Lombardo MD on May 29, 2017 at 17:29 Board Certified Radiologist. This report was verified electronically.
[2017-05-29 17:42] LABS: PROTHROMBIN TIME - PATIENT 10.4 SEC (9.8-11.6)
[2017-05-29 17:48] LABS: BICARBONATE 28.2 MEQ/L (21.0-32.0); BLOOD UREA NITROGEN 14 MG/DL (7-18); CALCIUM 8.7 MG/DL (8.5-10.1); CHLORIDE 108 MEQ/L (98-107); CREATININE 1.02 MG/DL (0.60-1.30); GLOMERULAR FILTRATION RATE 73 ML/MIN (>89); GLUCOSE,RANDOM 101 MG/DL (74-106); MAGNESIUM 2.2 MG/DL (1.5-2.5); SODIUM (NA) 142 MEQ/L (136-145)
[2017-05-29 17:51] LABS: TROPONIN I LESS THAN 0.02 NG/ML (0.02-0.05)
--- NOTE | 2017-05-29 18:00 | PD ---
HPI Chief Complaint: Cardiac Complaint Time Seen by Provider: 17:56 Travel History International Travel<30 days: No Contact w/Intl Traveler<30days: No Traveled to known affect area: No History of Present Illness HPI 67-year-old male with history of A. fib with RVR on Eloquist as well as Cardizem 180 mg, as well as Imdur 60 mg twice a day, presents the emergency department with reports of palpitations and question of "slow heart rate". Patient felt very tired but denied pain or shortness of breath. HEENT in triage with an EKG showing sinus rhythm at 63 bpm with occasional PVCs with nonspecific T-wave abnormalities. Labs were drawn showing no acute changes. Patient is seen in the room and feels he is at baseline and would like to leave. I discussed with him me calling Dr. de la torre his manager hospitality prior to him being discharged AMA and he agreed. He has multiple allergies including amlodipine, atorvastatin, doxycycline, minocycline, pravastatin, simvastatin, and tigecycline. Patient is currently asymptomatic. PFSH Past Medical History Hx Anticoagulant Therapy: Yes (Eliquis) Asthma: No Atrial Fibrillation: Yes Blood Disorders: No Anxiety: No Depression: No Heart Rhythm Problems: Yes Cancer: No Cardiac Catheterization: Yes (STENT PLACED) Cardiovascular Problems: Yes (a-fib, LAD spasms) High Cholesterol: Yes Chemotherapy: No Chest Pain: Yes Congestive Heart Failure: No COPD: No Diabetes: No Diminished Hearing: No Endocrine: No Gastrointestinal Disorders: No Genitourinary: No Hypertension: No Immune Disorder: No Implanted Vascular Access Dvce: Yes Kidney Stones: Yes Musculoskeletal: No Neurologic: No Psychiatric: No Reproductive: No Respiratory: Yes Radiation Therapy: No Sleep Apnea: Yes (CPAP) Thyroid Disease: No Past Surgical History Body Medical Devices: CARDIAC STENT Cardiac Surgery: Yes ( LEFT RING FINGER, RIGHT KNEE) Oral Surgery: Yes (WISDOM TEETH EXTRACTED) Other Surgery: Yes Social History Alcohol Use: Yes (OCC) Tobacco Use: No Substance Use: No Allergies-Medications (Allergen,Severity, Reaction): Coded Allergies: doxycycline (Unverified Allergy, Intermediate, Diarrhea, 04/27/17) minocycline (Unverified Allergy, Intermediate, Diarrhea, 04/27/17) tigecycline (Unverified Allergy, Intermediate, Diarrhea, 04/27/17) amlodipine (Unverified Allergy, Unknown, 04/27/17) atorvastatin (Unverified Allergy, Unknown, 04/27/17) pravastatin (Unverified Allergy, Unknown, 04/27/17) simvastatin (Unverified Allergy, Unknown, 04/27/17) Reported Meds & Prescriptions Reported Meds & Active Scripts Active [place] (Hydrocodone-Acetaminophen) 5 Mg-325 Mg Tab 1 Tab PO Q4H PRN Flagyl (Metronidazole) 500 Mg Tab 500 Mg PO BID 7 Days Bactrim DS (Sulfamethoxazole-Trimethoprim) 800-160 Mg Tab 1 Tab PO BID Cardizem CD 24 HR (Diltiazem CD 24 HR) 180 Mg Caper 180 Mg PO DAILY Reported Isosorbide Mononitrate 20 Mg Tab 60 Mg PO BID Take 2 doses 7 hours apart. Cardizem (Diltiazem HCl) 120 Mg Tab 120 Mg PO DAILY Eliquis (Apixaban) 5 Mg Tab 5 Mg PO BID Rectiv (Nitroglycerin (Intra-Anal)) 0.4 % Oin 0.4 Mg SL PRN Review of Systems Except as stated in HPI: all other systems reviewed are Neg General / Constitutional: No: Fever Eyes: No: Visual changes HENT: No: Headaches Cardiovascular: Positive: Palpitations, Irregular Rhythm, No: Chest Pain or Discomfort, Tachycardia, Diaphoresis, Syncope, Dyspnea on exertion, Varicosities , Edema, Cyanosis, Varicosities, Phlebitis, Claudication Respiratory: No: Shortness of Breath Gastrointestinal: No: Abdominal Pain Genitourinary: No: Dysuria Musculoskeletal: No: Pain Skin: No Rash Neurologic: No: Weakness Psychiatric: No: Depression Endocrine: No: Polydipsia Hematologic/Lymphatic: No: Easy Bruising Physical Exam Narrative GENERAL: Patient appears in no acute distress. SKIN: Warm and dry. Normal color. Normal turgor. HEAD: Atraumatic. Normocephalic. EYES: Pupils equal and round. No scleral icterus. No injection or drainage. ENT: No nasal bleeding or discharge. Mucous membranes pink and moist. NECK: Trachea midline. No JVD. Supple nontender. CARDIOVASCULAR: Regular rate and rhythm. No murmurs appreciated this time. RESPIRATORY: No accessory muscle use. Clear to auscultation. Breath sounds equal bilaterally. GASTROINTESTINAL: Abdomen soft, non-tender, nondistended. Hepatic and splenic margins not palpable. MUSCULOSKELETAL: Extremities without clubbing, cyanosis, or edema. No obvious deformities. NEUROLOGICAL: Awake and alert. No obvious cranial nerve deficits. Motor grossly within normal limits. Five out of 5 muscle strength in the arms and legs. Normal speech. PSYCHIATRIC: Appropriate mood and affect; insight and judgment normal. Data Data Last Documented VS Vital Signs Date Time Temp Pulse Resp B/P (MAP) Pulse Ox O2 Delivery O2 Flow Rate FiO2 05/29/17 16:15 98.9 57 16 151/78 (102) 98 Room Air Orders Orders Electrocardiogram (05/29/17 16:21) Basic Metabolic Panel (Bmp) (05/29/17 16:21) Ckmb (Isoenzyme) Profile (05/29/17 16:21) Complete Blood Count With Diff (05/29/17 16:21) Magnesium (Mg) (05/29/17 16:21) Prothrombin Time / Inr (Pt) (05/29/17 16:21) Act Partial Throm Time (Ptt) (05/29/17 16:21) Troponin I (05/29/17 16:21) Chest, Pa & Lat (05/29/17 16:21) CKMB (05/29/17 16:30) CKMB% (05/29/17 16:30) Labs Laboratory Tests Test 05/29/17 16:30 White Blood Count 6.7 TH/MM3 Red Blood Count 4.35 MIL/MM3 Hemoglobin 14.1 GM/DL Hematocrit 40.5 % Mean Corpuscular Volume 93.1 FL Mean Corpuscular Hemoglobin 32.5 PG Mean Corpuscular Hemoglobin Concent 34.9 % Red Cell Distribution Width 14.4 % Platelet Count 130 TH/MM3 Mean Platelet Volume 9.6 FL Neutrophils (%) (Auto) 56.0 % Lymphocytes (%) (Auto) 32.6 % Monocytes (%) (Auto) 9.2 % Eosinophils (%) (Auto) 2.0 % Basophils (%) (Auto) 0.2 % Neutrophils # (Auto) 3.8 TH/MM3 Lymphocytes # (Auto) 2.2 TH/MM3 Monocytes # (Auto) 0.6 TH/MM3 Eosinophils # (Auto) 0.1 TH/MM3 Basophils # (Auto) 0.0 TH/MM3 CBC Comment DIFF FINAL Differential Comment Prothrombin Time 10.4 SEC Prothromb Time International Ratio 1.0 RATIO Activated Partial Thromboplast Time 25.9 SEC Blood Urea Nitrogen 14 MG/DL Creatinine 1.02 MG/DL Random Glucose 101 MG/DL Calcium Level 8.7 MG/DL Magnesium Level 2.2 MG/DL Sodium Level 142 MEQ/L Potassium Level 4.0 MEQ/L Chloride Level 108 MEQ/L Carbon Dioxide Level 28.2 MEQ/L Anion Gap 6 MEQ/L Estimat Glomerular Filtration Rate 73 ML/MIN Total Creatine Kinase 122 U/L Creatine Kinase MB 1.8 NG/ML Troponin I LESS THAN 0.02 NG/ML MDM Medical Decision Making Medical Screen Exam Complete: Yes Emergency Medical Condition: Yes Medical Record Reviewed: Yes Differential Diagnosis Palpitations. Bradycardia. Cardiac syndrome. Narrative Course EKG is reviewed showing sinus rhythm with occasional PVCs with nonspecific ST abnormalities. CBC is unremarkable except for slightly low platelet count 130. Coagulation studies shows a PT of 10.4, INR 1.0, APTT is 25.9 on Eliquist. CMP is unremarkable. First troponin is less than 0.02. Call was placed to Dr. De La Torre to discuss the patient. Patient was discussed with Dr. Wilcox covering for Dr. De La Torre. The patient is felt to be stable for discharge at this time with follow-up with Dr. De La Torre. Patient should return to emergency department if worsening symptoms develop. Diagnosis Primary Impression: Heart palpitations Referrals: Nicholas De La Torre MD call for appointment Patient Instructions: General Instructions, Heart Palpitations (ED) Additional Instructions: EKG is reviewed showing sinus rhythm with occasional PVCs with nonspecific ST abnormalities. CBC is unremarkable except for slightly low platelet count 130. Coagulation studies shows a PT of 10.4, INR 1.0, APTT is 25.9 on Eliquist. CMP is unremarkable. First troponin is less than 0.02. Call was placed to Dr. De La Torre to discuss the patient. Patient was discussed with Dr. Wilcox covering for Dr. De La Torre. The patient is felt to be stable for discharge at this time with follow-up with Dr. De La Torre. Patient should return to emergency department if worsening symptoms develop. Med/Other Pt SpecificInfo: No Change to Meds Disposition: 01 DISCHARGE HOME Condition: Stable Asad Frances May 29, 2017 18:00
--- NOTE | 2017-05-30 16:38 | EKG ---
Date Performed: 05/29/2017 Time Performed: 16:26:19 PTAGE: 67 years EKG: Sinus rhythm WITH OCCASIONAL VENTRICULAR PREMATURE COMPLEXES NONSPECIFIC T-WAVE ABNORMALITY BORDERLINE ECG PREVIOUS TRACING : 11/16/2016 17.30 Since previous tracing, no significant change noted DOCTOR: Patrice Fisher Interpretating Date/Time 05/30/2017 16:37:50
== END 2017-05-29 19:29 | disposition home or self-care (01) ==
LOC: NEPC 16:14
DX: R00.2 Palpitations (principal); R94.31 Abnormal electrocardiogram [ECG] [EKG]; I48.91 Unspecified atrial fibrillation; E78.00 Pure hypercholesterolemia, unspecified
CPT/HCPCS: 71046; 80048; 82550; 82552; 83735; 84484; 85025; 85610; 85730; 93005; 99285